=== PATIENT | male | born 2000 | race Caucasian/White ===

== ENCOUNTER 2025-03-27 19:22 | Emergency (ER) | payer MEDICAID, SELFPAY ==
[2025-03-27 19:27] VITALS: BP 148/108; PULSE 121; RESP 18; TEMP 36.9; O2SAT 98
[2025-03-27 19:32] VITALS: BMI 19.5
[2025-03-27 19:49] VITALS: BMI 19.5
--- NOTE | 2025-03-27 23:36 | EX.ED.DYSGE1 ---
HPI History of Present Illness Chief Complaint: Neuro S/Sx Informant: patient and parent Narrative Narrative: 24-year-old male presenting to the emergency room with stuttering and paresthesias/weakness/numbness of the bilateral lower legs and feet. Patient states that he recently was pink slipped into [facility]. He states that he has not used opiates for 2 years but he was drinking heavily leading up to his hospitalization. He states that when he got to the psychiatric unit he was placed on Suboxone and phenobarbital. He states he overdosed and fell over. He states that when he came to he could not feel his bilateral lower legs or move them and he was stuttering. He states that after couple days he was moved to a neurofloor and was scheduled to have MRI of his brain and spine today. He states that they did the MRI of the brain but they needed to wait to do his spine and he decided to sign out AMA because he was not trusting of their care. Family brought him home from [place] and brought him here to [facility]. Patient and his family states that this is not him and that he was told that he has a rare complication of phenobarbital. He states that since coming back home he started to have more tingling/pins and needle sensation of the leg but still has some anterior numbness. He has been able to wiggle his toes since coming home and feels that he is getting better. He denies any bowel or bladder dysfunction. He states that the symptomology starts just below the knees on both sides. He states he is able to bend at the knees. He states that he does not have pain. [facility] Medical History Fracture of finger of right hand IBS (irritable bowel syndrome) UTI (urinary tract infection) Anxiety Severe major depression with psychotic features, mood-congruent Asthma Cough Wheezing Home Medications ?Medication ?Instructions ?Recorded ?Last Taken ?Type albuterol sulfate 90 mcg/actuation 2 puff inhalation Q4H PRN 04/12/18 Unknown Rx aerosol inhaler (ProAir HFA) shortness of breath or wheezing #18 grams amoxicillin 875 mg-potassium 1 tab PO BID #20 tabs 04/12/18 Unknown Rx clavulanate 125 mg tablet escitalopram oxalate 5 mg tablet 5 mg PO QDAY 04/12/18 Unknown History (Lexapro) tamsulosin 0.4 mg capsule 0.4 mg PO 03/27/25 Unknown History Allergy/AdvReac Type Severity Reaction Status Date / Time dog dander Allergy Intermediate hives Verified 03/27/25 19:33 aspirin AdvReac Intermediate not sure Verified 03/27/25 19:33 Family History Father Heart disease Uncle Heart disease Brother Asthma Mother Anxiety Brother Bipolar 1 disorder Other Diabetes Lung cancer Social History Smoking Status: Current every day smoker tobacco type: e-cigarettes substance use type: marijuana ROS ROS ED Constitutional Constitutional ED: Denies chills or weight loss Eyes Eyes: Denies change in vision or diplopia ENT ENT ED: Denies ear pain, rhinorrhea or sore throat Cardiovascular Cardiovascular: Denies chest pain, orthopnea, palpitations or racing heartbeat Respiratory/Chest Respiratory/Chest: Denies cough, dyspnea or orthopnea Gastrointestinal Gastrointestinal: Denies abdominal pain, diarrhea, nausea or vomiting Genitourinary Genitourinary ED: Denies dysuria, hematuria or urinary frequency Musculoskeletal Musculoskeletal: Denies arthralgias, back pain, myalgias or neck pain Integumentary Denies abscess or rash Neurologic Neurologic: Reports headache(s), paresthesias and weakness Psychiatric Psychiatric: Reports anxiety and depression; Denies suicidal ideation or suicidal thoughts Endocrine Endocrinology: Denies polydipsia, polyphagia or polyuria Allergic/Immunologic Allergic/Immunologic ED: Denies mouth swelling, tongue swelling or urticaria EXAM Physical Exam Const Vital Signs: 03/27/25 19:27 Temperature 98.5 F Temperature Source Oral Pulse Rate 121 H Respiratory Rate 18 Blood Pressure 148/108 H Blood Pressure Mean 121 Pulse Ox 98 Positive well nourished and well developed General Appearance ED: well developed HEENT Reports normocephalic, head/scalp atraumatic and moist mucous membranes Eyes PERRL and EOMs intact bilaterally Neck no lymphadenopathy, supple and no JVD Resp normal respiratory effort and clear to auscultation bilaterally Cardio regular rate, regular rhythm and no murmurs GI normal to inspection, nondistended, normoactive bowel sounds and non-tender Palpation: soft Back/Spine no CVA tenderness and normal ROM Extremity Extremity Narrative: Patient is able to wiggle his toes but he cannot dorsiflex or plantarflex at this time. He is able to bend at the knees. Reports [id number] with touching of the sides in the posterior aspect of his legs but numbness anteriorly and down onto the foot. The sensory loss does not appear in 1 particular or grouping of particular nerve distribution such as L4-L5 or L1-L2 etc. Neuro oriented x3 and CN's II-XII intact bilaterally Neuro Narrative: Patient has very pressured speech and is stuttering at times. Sensorium / Orientation: alert Sensory Exam: sensory level loss detected Psych Attitude: agitated Mood & Affect: depressed, anxious and tearful Skin no rashes or lesions noted and no wounds MDM MDM MDM Narrative Medical decision making narrative: Differential diagnosis includes intracranial hemorrhage concussion spinal cord injury medication reaction electrolyte abnormalities anxiety conversion disorder I spoke with the patient and his parents at length. I offered to try to obtained the medical records from [facility]. I informed him that I am happy to start an evaluation but I would most likely recommend transferring to tertiary care. They do not wish to go to [place]. I advised them that I would recommend [facility] or [facility] in [place] or [facility] and [facility] in [place] as possible places to be transferred. Patient states that he does not want to go anywhere tonight that he wants to go home and sleep. Family is comfortable signing him out AMA as he is also comfortable signing out AMA. They understand that there is a chance that he can get worse. I advised them that I am more than happy to begin the evaluation and to transfer him and assist in any way. They would prefer to let him go home tonight and sleep and plan on taking him to tertiary care facility tomorrow. I am going to have both the patient and the family signed the AMA form because I do not know to what extent the medications he has been on could possibly alter his competency but at the current time he is ANO x 3 he understands risk benefits of staying versus leaving and they are consistent with his values. History & Record Review Discussion w/independent historian: Patient and Family (Mother and father) Discharge Plan Triage Chief Complaint: Neuro S/Sx ED Provider: Ike York Dx/Rx/DC Orders Clinical Impression: Paresthesias, Bilateral leg weakness, Anxiety, Stuttering Prescriptions: No Action escitalopram oxalate [Lexapro] 5 mg tablet 5 mg PO QDAY albuterol sulfate [ProAir HFA] 90 mcg/actuation HFA aerosol inhaler 2 puff INHALATION Q4H PRN (Reason: shortness of breath or wheezing) Qty: 18 3RF amoxicillin-pot clavulanate 875-125 mg tablet 1 tab PO BID Qty: 20 0RF tamsulosin 0.4 mg capsule 0.4 mg PO Primary Care Provider: Care Physician,No Primary Referrals: Care Physician,No Primary [Primary Care Provider] - Activity Restrictions/Additional Instructions: As we discussed I would strongly recommend going to the main facility of the [facility] such as [facility] or [facility]. We are certainly able to work you up to our ability here and transfer you there tonight. If you wish to go home and go to 1 of those facilities had is your choice. Print Language: Stateless Disposition Disposition: Against Medical Advice Discharge Date/Time: 03/27/25 21:32 Capacity Capacity Assessment Tool Patient lacks Decision Making Capacity: unable to understand, reason and deliberate health related choices: No Risk to self and or others?: No Risk of leaving the patient care unit and or hospital?: Yes
== END 2025-03-27 21:32 | disposition left against medical advice (07) ==
PROVIDERS: Emergency Provider Emergency Medicine; Visit Provider Emergency Medicine
DX: R20.2 Paresthesia of skin (principal); F41.9 Anxiety disorder, unspecified; R29.898 Other symptoms and signs involving the musculoskeletal system; F17.290 Nicotine dependence, other tobacco product, uncomplicated; R53.1 Weakness; F98.5 Adult onset fluency disorder; Z79.899 Other long term (current) drug therapy
CPT/HCPCS: 99282